=== PATIENT | female | born 1955 | race Caucasian/White ===

== ENCOUNTER 2016-12-28 10:12 | Emergency (ER) | payer BC ==
[2016-12-28 10:46] VITALS: BP 177/91
--- NOTE | 2016-12-28 12:41 | UC ---
Dizzy HPI HPI Summary: The patient comes in today for: 1. Dizziness (near syncope--she denies any vertigo)--but she is not having at this time.) Onset: 3 days ago. Palliative/provocative: Sinus congestion medication helped. Quality: Near syncope, no vertigo or imbalance. Region: [employer] Severity: 0/10 Time: Comes and goes. Associated symptoms: Frequency: 3-4 times a day initially, and none after 2 PM yesterday Numbness/weakness: Head injury: None. Sudden onset: Present Dizziness started 2 days after having vomiting and diarrhea. She had vomiting "no more than 10" at its worse. She had formed stools, when she had "diarrhea." During those two days, her urination was marked by a longer time in between. Palpitations/chest pain: None. * - History Of Current Complaint Chief Complaint: UCRespiratory Stated Complaint: SINUS, DIZZY Time Seen by Provider: 12/28/16 12:33 Hx Obtained From: Patient Hx Last Menstrual Period: Years ago. ?: No - Allergies/Home Medications Allergies/Adverse Reactions: Allergies Allergy/AdvReac Type Severity Reaction Status Date / Time No Known Allergies Allergy Verified 12/28/16 10:42 Home Medications: Home Medications Phenylephrine W/ Acetaminophen [Tylenol Sinus Congestion 5-325 mg] 1 tab PO Q4H PRN 12/28/16 [History Confirmed 12/28/16] PMH/Surg Hx/FS Hx/Imm Hx Previously Healthy: Yes Endocrine History Of: Denies: Diabetes, Thyroid Disease, Hyperthyroidism, Hypothyroidism, Dyslipidemia Cardiovascular History Of: Denies: Cardiac Disorders, Hypertension, Pacemaker/ICD, Myocardial Infarction , Congestive Heart Failure, Atrial Fibrillation, Deep Vein Thrombosis, Bleeding Disorders Respiratory History Of: Denies: COPD, Asthma, Bronchitis, Pneumonia, Pulmonary Embolism GI/ History Of: Denies: Gastroesophageal Reflux, Ulcer, Gastrointestinal Bleed, Gall Bladder Disease, Kidney Stones, Diverticulitis, Renal Disease, Urosepsis Neurological History Of: Denies: TIA, CVA, Dementia, Seizures, Migraine Psychological History Of: Denies: Anxiety, Depression, Bipolar Disorder, Schizophrenia, Post Traumatic Stress Disorder Cancer History Of: Denies: Lung Cancer, Colorectal Cancer, Breast Cancer, Prostate Cancer, Cervical Cancer Other History Of: Negative For: HIV, Hepatitis B, Hepatitis C, Anticoagulant Therapy - Surgical History Surgical History: None - Family History Known Family History: Positive: Cardiac Disease, Hypertension - Social History Occupation: Employed Full-time Alcohol Use: None Substance Use Type: None Smoking Status (MU): Never Smoked Tobacco - Immunization History Most Recent Influenza Vaccination: Not the Season Review of Systems Constitutional: Negative Skin: Negative Eyes: Negative ENT: Negative Respiratory: Negative Cardiovascular: Negative Gastrointestinal: Negative Genitourinary: Negative All Other Systems Reviewed And Are Negative: Yes Physical Exam Triage Information Reviewed: Yes Appearance: Well-Appearing, No Pain Distress, Well-Nourished Vital Signs: Initial Vital Signs Temp 98.5 F 12/28/16 10:40 Pulse 92 12/28/16 10:40 Resp 16 12/28/16 10:40 BP 177/91 12/28/16 10:40 Pulse Ox 99 12/28/16 10:40 Vital Signs Reviewed: Yes Eyes: Positive: Conjunctiva Clear. Negative: Discharge ENT: Positive: Hearing grossly normal. Negative: Pharyngeal erythema, Nasal congestion, Nasal drainage, TM bulging, TM dull, TM red, Tonsillar swelling, Tonsillar exudate Dental: Negative: Gross Decay/Caries @, Dental Fracture @ Neck: Positive: Supple, Nontender, No Lymphadenopathy. Negative: Nuchal Rigidity Respiratory: Positive: Chest non-tender, Lungs clear, No respiratory distress, No accessory muscle use. Negative: Crackles, Wheezing Cardiovascular: Positive: RRR, No Murmur Abdomen Description: Positive: Nontender, No Organomegaly, Soft. Negative: Distended, Peritoneal Signs Musculoskeletal: Positive: Strength Intact, ROM Intact Neurological: Positive: Alert, Muscle Tone Normal, Other: - Neurologic exam: Inspection: No fasciculations. Muscular tone: Normal Strength: Upper and lower extremities symmetrical and appropriate for age. Cranial nerves: II through XII were normal. Reflexes: Upper extremity: biceps: 2+/2 x 2, triceps: 2+/2 x 2, brachioradialis: 2+/2 x 2 Lower extremity: Patellar: 2+ /2 x 2, Achilles: 2+/2 x 2 Gait: Normal Coordination: Upper: Finger to nose and alternating palms on thighs: Normal Lower: Heel along zeng: Normal Rhomberg: Normal Psychological: Positive: Age Appropriate Behavior, Consolable, Inconsolable Skin: Negative: rashes, breakdown Dizzy Course/Dx - Course Course Of Treatment: The patient was talked to at length regarding "dizziness" and how it can be benign and self-limiting or from a life-threatening condition (heart, stroke, etc). During this discussion, she states that what she meant to say was that she did in fact have a turning sensation even though I specificially asked her if her "dizziness" was something that was a turning sensation. Either way, she states that she has not had it for the last two days now that she is able to keep fluids down and her urination is more regular and her urine is colorless to only slightly yellow. In the end, she only wanted to have some medication available if the vertigo comes back. - Differential Dx/Diagnosis Provider Diagnoses: vertigo. Discharge - Discharge Plan Condition: Stable Disposition: HOME Patient Education Materials: Vertigo (ED) Forms: *Work Release Referrals: No Primary Care Phys,NOPCP [Primary Care Provider] - 1 Week (Please see your primary care provider in about a week. If you don't have a primary care provider, please reference the included sheet of local provider. If you get worse, please be seen sooner.) Additional Instructions: Having original formulation Dramamine 50 mg/pill, 50-100 mg every 4 hours as needed for vertigo/nausea can be helpful for symptoms. If you have a re- occurrence of the vertigo and there are other problems such as weakness or numbness, please go to the ER for re-evaluation.
== END 2016-12-28 13:28 | disposition home or self-care (01) ==
LOC: UCCORT 10:12
DX: R42 Dizziness and giddiness (principal)
CPT/HCPCS: 99201; G0463